=== PATIENT | male | born 1990 | race Two or more races ===

== ENCOUNTER 2020-06-05 11:54 | Emergency (ER) | payer SELFPAY ==
[~2020-06-05] VITALS: Ht 188 cm; Wt 108.9 kg
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
[2020-06-05 12:10] VITALS: BP 133/82
--- NOTE | 2020-06-05 12:24 | NUR ---
ELOPEMENT: When going back into pt's room to speak with him, pt was not in the room. Pt not in the bathroom, not in radiology. Pt left without going to radiology.
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
== END 2020-06-05 13:30 | disposition home or self-care (01) ==
LOC: EMR 12:35
DX: J34.2 Deviated nasal septum (principal); Z53.29 Procedure and treatment not carried out because of patient's decision for other reasons; S00.31XA Abrasion of nose, initial encounter; Y04.2XXA Assault by strike against or bumped into by another person, initial encounter; Y92.9 Unspecified place or not applicable
CPT/HCPCS: 99282